=== PATIENT | female | born 1950 | race Caucasian/White ===

== ENCOUNTER 2023-08-10 17:41 | Emergency (ER) | payer BC, OTHER ==
[2023-08-10 18:20] LABS: Absolute Eosinophils 0.1 K/uL (0-0.5); Absolute Lymphocytes (CBC) 0.9 K/uL (0.7-4.9); Absolute Monocytes 0.8 K/uL (0.1-1.3); Absolute Neutrophil 4.8 K/uL (1.8-8.0); Basophils % 0.6 % (0-1.3); Eosinophils % 1.6 % (0-4.4); Hematocrit 30.9 % (36.0-45.0); Hemoglobin 9.7 g/dL (12.0-15.0); Lymphocytes % 13.4 % (15.3-44.8); MCH 22.1 pg (27.0-35.0); MCHC 31.5 g/dL (32.0-36.0); MCV 70.2 fL (80-100); MPV 10.6 fL (7.6-11.3); Neutrophils % 72.4 % (41.7-73.7); Nucleated Red Blood Cells % 0.1 % (0-0); Platelets 265 thou/uL (152-406); RBC Red Blood Cell Count 4.41 M/uL (3.86-4.86); Red Cell Distribution Width 17.4 % (12.1-15.2)
[2023-08-10 18:30] LABS: Anion Gap 6.9 mEq/L (5.0-15.0)
[2023-08-10 18:31] LABS: Potassium 3.9 mEq/L (3.5-5.1)
--- NOTE | 2023-08-10 18:47 | RAD REPORT ---
EXAM DESCRIPTION: US - Extremity Venous Uni Ltd - 08/10/2023 6:20 pm CLINICAL HISTORY: Pain COMPARISON: None. TECHNIQUE: Real-time sonographic evaluation of the right lower extremity deep venous system was perf ormed. FINDINGS: Normal compressibility, flow augmentation, phasic flow and spontaneous flow is identified in the right lower extremity deep venous system. No intraluminal filling defects seen. IMPRESSION: No DVT in the right lower extremity.
--- NOTE | 2023-08-10 18:50 | EDPHYS ---
Physician Documentation [facility] Name: Marie Reynoso Age: 73 yrs Sex: Female : 1950 Arrival Date: 08/10/2023 Time: 17:41 Bed 11 Private MD: ED Physician Cory London HPI: 08/09 22:01 This 73 yrs old Female presents to ER via Ambulatory with complaints of Ankle Injury. kb 22:01 Pt is a 73 year old female who presents for lateral right ankle pain that started this kb morning. States the area has become red with some warmth to it. Denies injury or trauma, fever. No pain with range of joint. Pt was seen at Urgent Care today, had x-ray that was negative for fracture but was told she needed to be checked for a blood clot. Historical: - Allergies: 17:54 No Known Allergies; as6 - PMHx: 17:54 Hypertensive disorder; Hypothyroidism; as6 - PSHx: 17:54 shoulder; gastric bypass; Total abdominal hysterectomy; eyes; hip; foot; as6 - Immunization history:: Adult Immunizations up to date. - Infectious Disease History:: Denies. - Social history:: Smoking status: Patient denies any tobacco usage or history of. ROS: 21:58 Constitutional: As per HPI kb Exam: 21:58 Constitutional: This is a well developed, well nourished patient who is awake, alert, kb and in no acute distress. Head/Face: Normocephalic, atraumatic. ENT: Moist Mucous membranes Cardiovascular: Regular rate Respiratory: Respirations even and unlabored. No increased work of breathing. Talking in full sentences Abdomen/GI: Soft, non-tender. No distention MS/ Extremity: Pulses equal, no cyanosis. Neurovascular intact. Full, normal range of motion. Neuro: Awake and alert, GCS 15, oriented to person, place, time, and situation. Moves all extremities. Normal gait. 21:58 Skin: cellulitis, that is mild, on the right ankle, Vital Signs: 17:53 BP 150 / 78; Pulse 64; Resp 18; Temp 97.8; Pulse Ox 100% ; as6 MDM: 17:50 Patient medically screened. kb 21:59 Differential diagnosis: sprain, gout, cellulitis. Data reviewed: vital signs, nurses kb notes. Counseling: I had a detailed discussion with the patient and/or guardian regarding the historical points, exam findings, and any diagnostic results supporting the discharge/admit diagnosis, lab results, the need for outpatient follow up, a family practitioner, to return to the emergency department if symptoms worsen or persist or if there are any questions or concerns that arise at home. 08/09 17:56 Order name: CBC with Diff; Complete Time: 18:45 kb 08/09 17:56 Order name: Basic Metabolic Panel; Complete Time: 18:45 kb 08/09 17:56 Order name: US Extremity Venous Unilateral Ltd; Complete Time: 18:49 kb Administered Medications: No medications were administered Disposition Summary: 08/10/23 18:49 Discharge Ordered Notes: Location: Home kb Condition: Stable kb Diagnosis - Cellulitis of right lower limb kb Followup: kb - With: Emergency Department - When: As needed - Reason: Worsening of condition Followup: kb - With: Private Physician - When: 2 - 3 days - Reason: Recheck today's complaints, Continuance of care, Re-evaluation by your physician Discharge Instructions: - Discharge Summary Sheet kb - Cellulitis, Adult, [id number] kb Forms: - Medication Reconciliation Form kb - Antibiotic Education kb - Prescription Opioid Use kb - Patient Portal Instructions kb - Leadership Thank You Letter kb Prescriptions: - Cephalexin 500 mg Oral Capsule - take 1 capsule ORAL route every 8 hours for 10 days; 30 capsule; Refills: 0, kb Product Selection Permitted Signatures: Dispatcher [employer] Nancy Renee, SCREW MACHINE HAND-C Reece Hyman RN RN as6 Corrections: (The following items were deleted from the chart) 19:00 17:56 IV Saline Lock ordered. kb ss
--- NOTE | 2023-08-10 18:50 | ER ---
Nurse's Notes [facility] Name: Marie Reynoso Age: 73 yrs Sex: Female : 1950 Arrival Date: 08/10/2023 Time: 17:41 Bed 11 Private MD: Diagnosis: Cellulitis of right lower limb Presentation: 08/09 17:53 Chief complaint: Patient states: right ankle pain and swelling. Coronavirus screen: At as6 this time, the client does not indicate any symptoms associated with coronavirus-19. Ebola Screen: No symptoms or risks identified at this time. Initial Sepsis Screen: Does the patient meet any 2 criteria? No. Patient's initial sepsis screen is negative. Does the patient have a suspected source of infection? No. Patient's initial sepsis screen is negative. Risk Assessment: Do you want to hurt yourself or someone else? Patient reports no desire to harm self or others. Onset of symptoms was August 09, 2023. 17:53 Method Of Arrival: Ambulatory as6 17:53 Acuity: ANGELICA 3 as6 Historical: - Allergies: 17:54 No Known Allergies; as6 - PMHx: 17:54 Hypertensive disorder; Hypothyroidism; as6 - PSHx: 17:54 shoulder; gastric bypass; Total abdominal hysterectomy; eyes; hip; foot; as6 - Immunization history:: Adult Immunizations up to date. - Infectious Disease History:: Denies. - Social history:: Smoking status: Patient denies any tobacco usage or history of. Screenin:00 [facility] ED Fall Risk Assessment (Adult) History of falling in the last 3 months, ss including since admission No falls in past 3 months (0 pts). Abuse screen: Denies threats or abuse. Denies injuries from another. Nutritional screening: No deficits noted. Tuberculosis screening: Never had TB. Assessment: 19:00 General: Appears in no apparent distress. comfortable, Behavior is calm, cooperative. ss Neuro: Level of Consciousness is awake, alert, obeys commands, Oriented to person, place, time, situation. Respiratory: Airway is patent Respiratory effort is even, unlabored, Respiratory pattern is regular, symmetrical. Derm: Skin is intact, is healthy with good turgor, Skin is dry. Vital Signs: 17:53 BP 150 / 78; Pulse 64; Resp 18; Temp 97.8; Pulse Ox 100% ; as6 ED Course: 17:46 Patient arrived in ED. mg5 17:50 Nancy Abarca FNP-C is PHCP. kb 17:50 Cory London MD is Attending Physician. kb 17:54 Triage completed. as6 17:57 Reece Blackmon, RN is Primary Nurse. as6 17:57 Arm band placed on. as6 18:07 Basic Metabolic Panel Sent. as6 18:08 CBC with Diff Sent. as6 18:22 US Extremity Venous Unilateral Ltd In Process Unspecified. EDMS 19:00 Patient has correct armband on for positive identification. ss 19:00 No provider procedures requiring assistance completed. Patient did not have IV access ss during this emergency room visit. Administered Medications: No medications were administered Medication: 19:00 VIS not applicable for this client. ss Outcome: 18:49 Discharge ordered by . kb 19:00 Discharged to home ambulatory, with family, ss 19:00 Condition: good 19:00 Discharge instructions given to patient, family, Instructed on discharge instructions, follow up and referral plans. medication usage, Demonstrated understanding of instructions, follow-up care, medications, Prescriptions given X 1, 19:03 Patient left the ED. ss Signatures: Dispatcher [employer] EDMO Nancy Abarca FNP-C FNP-Ashlyn Leavitt, RN RN Reece Blackmon, RN RN Katlyn Ordonez mg5
[2023-08-10 19:19] VITALS: BP 150/78; TEMP 97.8; O2SAT 100
== END 2023-08-10 19:03 | disposition home or self-care (01) ==
LOC: ER 17:41
DX: L03.115 Cellulitis of right lower limb (principal)
CPT/HCPCS: 36415; 80048; 85025; 93971; 99283

== ENCOUNTER 2023-12-03 15:03 | Observation (INO) | payer OTHER ==
[2023-12-03 15:33] LABS: Absolute Lymphocytes (CBC) 0.9 K/uL (0.7-4.9); Absolute Monocytes 0.7 K/uL (0.1-1.3); Absolute Neutrophil 5.1 K/uL (1.8-8.0); Basophils % 0.3 % (0-1.3); Eosinophils % 0.5 % (0-4.4); Hematocrit 29.8 % (36.0-45.0); Hemoglobin 9.2 g/dL (12.0-15.0); Lymphocytes % 13.6 % (15.3-44.8); MCH 22.7 pg (27.0-35.0); MCHC 30.9 g/dL (32.0-36.0); MCV 73.3 fL (80-100); Monocytes % 10.7 % (3.3-12.3); Neutrophils % 74.9 % (41.7-73.7); Platelets 225 thou/uL (152-406); RBC Red Blood Cell Count 4.07 M/uL (3.86-4.86); Red Cell Distribution Width 17.8 % (12.1-15.2)
[2023-12-03 15:42] LABS: PT Prothrombin Time 11.3 SECONDS (9.4-12.5); Protime INR 1.01
[2023-12-03] MEDS ORDERED: ASPIRIN 81 MG CHEWABLE TABLET ONE (15:48)
[2023-12-03] MEDS ORDERED: ONDANSETRON 4 MG/2 ML VIAL ONE (15:48)
[2023-12-03] MEDS ORDERED: IBUPROFEN 200 MG TAB PO ONE (15:49)
[2023-12-03] MEDS ORDERED: NA CHLORIDE 0.9% 0 ML ONE (15:50)
[2023-12-03 15:59] LABS: AST/SGOT 11 U/L (15-37); Albumin 2.8 g/dL (3.4-5.0); Albumin/Globulin Ratio 0.8 (1.1-1.8); Alkaline Phosphatase 76 U/L (45-117); Anion Gap 8.5 mEq/L (5.0-15.0); BUN Blood Urea Nitrogen 33 mg/dL (7-18); Bicarbonate 27 mEq/L (21-32); Bilirubin Total 0.3 mg/dL (0.2-1.0); Globulin 3.6 g/dL (2.3-3.5); Glomerular Filtration Rate 59 ml/min (=/>90); Glucose Level 111 mg/dL (74-106); Magnesium 1.3 mg/dL (1.6-2.4); NT PRO-BNP 433 pg/mL (<125); Protein, Total 6.4 g/dL (6.4-8.2); Sodium Level 141 mEq/L (136-145); Troponin High Sensitivity 25.6 pg/mL (<58.9)
[2023-12-03 16:01] LABS: ALT/SGPT < 14 U/L (13-56)
[2023-12-03 16:03] LABS: Potassium 2.5 mEq/L (3.5-5.1)
--- NOTE | 2023-12-03 16:18 | RAD REPORT ---
EXAMINATION: ONE VIEW CHEST XR CLINICAL INDICATION: Female, 73 years old.,CHEST PAIN TECHNIQUE: Frontal chest projection is submitted. Examination is limited by patient positioning and t echnique. COMPARISON: No prior exam. FINDINGS: The lungs are well inflated and, apart from mild left basilar atelectasis. No pneumothorax or sizabl e effusion. The heart is normal in size. IMPRESSION: No acute intrathoracic abnormalities.
[2023-12-03] MEDS ORDERED: POTASSIUM CL SA 10 MEQ TAB PO ONE (16:26)
[2023-12-03] MEDS ORDERED: KCL 20 MEQ/100 mL IVPB 100 ML IV ONE (16:27)
[2023-12-03] MEDS ORDERED: NA CHLORIDE 0.9% 500 ML ONE (16:27)
--- NOTE | 2023-12-03 16:37 | ER ---
Nurse's Notes [facility] Name: Marie Reynoso Age: 73 yrs Sex: Female : 1950 Arrival Date: 12/03/2023 Time: 15:03 Bed 6 Private MD: Diagnosis: Acute systolic (congestive) heart failure;Hypokalemia Presentation: 12/02 15:13 Chief complaint: Intermittent right sided chest pain x 2 days. Seen at [facility], instructed to come to ED for abnormal EKG. Coronavirus screen: At this time, the client does not indicate any symptoms associated with coronavirus-19. Ebola Screen: No symptoms or risks identified at this time. Initial Sepsis Screen: Does the patient meet any 2 criteria? No. Patient's initial sepsis screen is negative. Does the patient have a suspected source of infection? No. Patient's initial sepsis screen is negative. Risk Assessment: Do you want to hurt yourself or someone else? Patient reports no desire to harm self or others. Onset of symptoms was December 02, 2023. 15:13 Method Of Arrival: Ambulatory hb 15:13 Acuity: ANGELICA 2 hb Triage Assessment: 15:26 General: Behavior is cooperative. qf Historical: - Allergies: 15:15 No Known Allergies; hb - PMHx: 15:15 Hypertensive disorder; Hypothyroidism; hb - PSHx: 15:15 eyes; foot; Gastric Bypass; hip; Shoulder; Total abdominal hysterectomy; hb - Immunization history:: Adult Immunizations up to date. - Infectious Disease History:: Denies. - Social history:: Smoking status: Patient denies any tobacco usage or history of. Screenin:27 [facility] ED Fall Risk Assessment (Adult) History of falling in the last 3 months, qf including since admission Yes- single mechanical fall (1 pt) Confusion or Disorientation No (0 pts) Intoxicated or Sedated No (0 pts) Impaired Gait No (0 pts) Mobility Assist Device Used No (0 pt) Altered Elimination No (0 pt) Score/Fall Risk Level 0 - 2 = Low Risk. Abuse screen: Denies threats or abuse. Denies injuries from another. Nutritional screening: No deficits noted. Tuberculosis screening: No symptoms or risk factors identified. Assessment: 15:24 General: Appears in no apparent distress. comfortable, well groomed, well nourished. qf Pain: Complains of pain in chest Pain radiates to posterior chest and back Pain currently is 8 out of 10 on a pain scale. Neuro: No deficits noted. Cardiovascular: No deficits noted. Chest pain. Respiratory: No deficits noted. 17:40 Reassessment: Report given to Lanie Tan RN. qf Vital Signs: 15:13 BP 140 / 53; Pulse 71; Resp 16; Temp 97.9; Pulse Ox 100% on R/A; Pain 8/10; hb 15:13 Pain Scale: Adult hb ED Course: 15:05 Patient arrived in ED. mr 15:07 Sal Mack[facility] 15:07 Carolyn Florez MD is Attending Physician. dr5 15:09 Naz Iglesias, MARLEEN is Primary Nurse. iw 15:15 Triage completed. hb 15:16 Arm band placed on. hb 15:20 Inserted saline lock: 20 gauge in right antecubital area, using aseptic technique. qf 15:23 CBC with Diff Sent. qf 15:23 Magnesium Sent. qf 15:23 NT PRO-BNP Sent. qf 15:23 PT-INR Sent. qf 15:23 Troponin HS Sent. qf 15:23 CMP Sent. qf 15:29 Patient has correct armband on for positive identification. Placed in gown. Bed in low qf position. Call light in reach. Side rails up X 1. Provided Education on: ER Procedures.. 16:06 XRAY Chest (1 view) In Process Unspecified. EDMS 16:35 Jean Paul Tripp is Hospitalizing Provider. dr5 18:07 No provider procedures requiring assistance completed. Patient admitted, IV remains in iw place. Administered Medications: 15:44 Not Given (Patient Refused): morphineor iv 2 mg IVP once over 4 mins qf 15:56 Drug: Aspirin PO Chewable Tablet 324 mg PO once; 81 mg tablets x 4 Route: PO; qf 16:48 Follow up: Response: No adverse reaction qf 15:57 Not Given (Patient Refused): ondansetron 4 mg IVP once; over 2 minutes qf 16:25 Drug: Potassium Chloride PO 40 mEq PO once Route: PO; rs5 16:25 Drug: NS 0.9% IV 500 ml IV at bolus once Route: IV; Rate: bolus; Site: right rs5 antecubital; 16:25 Drug: Potassium Chloride IV 20 mEq IV at per protocol once; administer over 1-2 hours rs5 Route: IV; Rate: per protocol; Site: right antecubital; Medication: 18:07 VIS not applicable for this client. iw Outcome: 16:36 Decision to Hospitalize by Provider. dr5 18:07 Admitted to Tele accompanied by tech, via wheelchair, room 406, iw 18:07 Condition: good 18:07 Discharge instructions given to patient, Instructed on the need for admit, Demonstrated understanding of instructions, 18:07 Patient left the ED. iw Signatures: Dispatcher [employer] EDMS LopezLuz, Reg Reg mr Naz Iglesias RN RN iw Ruchi Figueroa RN RN Jason Bhatia RN RN rs5 Sal Mack, CHURCH ADMINISTRATOR-C CHURCH ADMINISTRATOR-Cdr5 Yumiko Brown RN RN qf
--- NOTE | 2023-12-03 16:37 | EDPHYS ---
Physician Documentation [facility] Name: Marie Reynoso Age: 73 yrs Sex: Female : 1950 Arrival Date: 12/03/2023 Time: 15:03 Bed 6 Private MD: ED Physician Carolyn Florez HPI: 12/02 15:16 This 73 yrs old Female presents to ER via Ambulatory with complaints of dr5 Abnormal Lab Results. 15:16 Onset: The symptoms/episode began/occurred 2 day(s) ago. Associated signs and symptoms: dr5 Pertinent positives: chest pain, Back Pain. The patient has been recently seen at an urgent care, [facility] today. Pt is a 73 year old female presenting with intermittent right sided chest pain and back pain. Pt has hx of HTN and gastric bypass surgery (Mar 2023), and hypothyroidism. Pt sees guest service agent for HTN management. . Historical: - Allergies: 15:15 No Known Allergies; hb - PMHx: 15:15 Hypertensive disorder; Hypothyroidism; hb - PSHx: 15:15 eyes; foot; Gastric Bypass; hip; Shoulder; Total abdominal hysterectomy; hb - Immunization history:: Adult Immunizations up to date. - Infectious Disease History:: Denies. - Social history:: Smoking status: Patient denies any tobacco usage or history of. ROS: 15:19 Constitutional: as per hpi dr5 Exam: 15:19 Constitutional: This is a well developed, well nourished patient who is awake, alert, dr5 and in no acute distress. Head/Face: Normocephalic, atraumatic. ENT: Nares patent. No nasal discharge, no septal abnormalities noted. Tympanic membranes are normal and external auditory canals are clear. Oropharynx with no redness, swelling, or masses, exudates, or evidence of obstruction, uvula midline. Mucous membranes moist. Neck: Trachea midline, no thyromegaly or masses palpated, and no cervical lymphadenopathy. Supple, full range of motion without nuchal rigidity, or vertebral point tenderness. No Meningismus. Chest/axilla: Normal chest wall appearance and motion. Nontender with no deformity. No lesions are appreciated. Cardiovascular: Regular rate and rhythm with a normal S1 and S2. Normal PMI, no JVD. No pulse deficits. 15:19 ECG was reviewed by the Attending Physician. 17:17 Cardiovascular: Rate: normal, actual rate is 67 bpm, Rhythm: regular, Pulses: Pulses dr5 are 2+ in right radial artery and left radial artery. 17:17 Respiratory: the patient does not display signs of respiratory distress, 17:17 Abdomen/GI: Inspection: abdomen appears normal, Palpation: abdomen is soft and non-tender, in all quadrants, 17:17 Back: pain, that is mild, 17:17 Musculoskeletal/extremity: Extremities: ROM: no acute changes, intact in all extremities, Circulation is intact in all extremities. Pulses: are normal with no appreciated deficits, Edema, 1+ to the left ankle, left foot, right ankle and right foot is noted, 17:17 Skin: Appearance: Color: normal in color, pink, Temperature: normal temperature, warm, 17:17 Neuro: Orientation: is normal, to person, place, time \T\ situation. Mentation: is normal, 17:17 Psych: exam not indicated, Vital Signs: 15:13 BP 140 / 53; Pulse 71; Resp 16; Temp 97.9; Pulse Ox 100% on R/A; Pain 8/10; hb 15:13 Pain Scale: Adult hb MDM: 15:07 Patient medically screened. dr5 17:17 Differential diagnosis: URI, bronchitis, CHF, STEMI, NSTEMI. Data reviewed: vital dr5 signs, nurses notes. Consideration of Admission/Observation Patient was admitted/placed on observation. Management of patient was discussed with the following: Hospitalist: Dr. Tripp accepted patient for admission. I considered the following discharge prescriptions or medication management in the emergency department Medications were administered in the Emergency Department. See MAR. Care significantly affected by the following chronic conditions: Hypertension, Hypothyroidism. Care significantly affected by the following Social Determinants of Health: Poor access to healthcare and/or lack of insurance. Counseling: I had a detailed discussion with the patient and/or guardian regarding the historical points, exam findings, and any diagnostic results supporting the discharge/admit diagnosis, the presence of at least one elevated blood pressure reading (>120/80) during this emergency department visit, lab results, radiology results, the need for further work-up and treatment in the hospital. ED course: Pt found to have pro-BNP of over 400 consistent with new onset CHF with hypokalemia, hypo magnesium and decision was made to admit for further management (repeat trop, ECHO, etc.). 12/02 15:13 Order name: CBC with Diff; Complete Time: 15:45 dr5 12/02 15:13 Order name: Magnesium; Complete Time: 16:10 dr5 12/02 15:13 Order name: NT PRO-BNP; Complete Time: 16:10 dr5 12/02 15:13 Order name: PT-INR; Complete Time: 15:45 dr5 12/02 15:13 Order name: Troponin HS; Complete Time: 16:10 dr5 12/02 15:13 Order name: CMP; Complete Time: 16:10 dr5 12/02 17:09 Order name: Potassium EDMS 12/02 17:09 Order name: T4 Free EDMS 12/02 17:09 Order name: Thyroid Stimulating Hormone EDMS 12/02 17:09 Order name: Urinalysis w/ reflexes EDMS 12/02 17:09 Order name: Basic Metabolic Panel EDMS 12/02 17:09 Order name: Basic Metabolic Panel EDMS 12/02 17:09 Order name: Basic Metabolic Panel EDMS 12/02 17:09 Order name: Basic Metabolic Panel EDMS 12/02 17:09 Order name: Basic Metabolic Panel EDMS 12/02 17:09 Order name: Basic Metabolic Panel EDMS 12/02 17:09 Order name: CBC with Automated Diff EDMS 12/02 17:09 Order name: CBC with Automated Diff EDMS 12/02 17:09 Order name: CBC with Automated Diff EDMS 12/02 17:09 Order name: CBC with Automated Diff EDMS 12/02 17:09 Order name: CBC with Automated Diff EDMS 12/02 17:09 Order name: CBC with Automated Diff EDMS 12/02 17:09 Order name: Hemoglobin A1c EDMS 12/02 17:09 Order name: Hemoglobin A1c EDMS 12/02 17:09 Order name: Lipid Profile EDMS 12/02 17:09 Order name: Lipid Profile EDMS 12/02 17:09 Order name: Magnesium EDMS 12/02 17:09 Order name: Magnesium EDMS 12/02 17:09 Order name: Magnesium EDMS 12/02 17:09 Order name: Magnesium EDMS 12/02 17:09 Order name: Magnesium EDMS 12/02 17:09 Order name: Magnesium EDMS 12/02 17:09 Order name: Phosphorus EDMS 12/02 17:09 Order name: Phosphorus EDMS 12/02 17:09 Order name: Phosphorus EDMS 12/02 17:09 Order name: Phosphorus EDMS 12/02 17:09 Order name: Phosphorus EDMS 12/02 17:09 Order name: Phosphorus EDMS 12/02 17:09 Order name: Troponin High Sensitivity EDMS 12/02 17:09 Order name: Troponin High Sensitivity EDMS 12/02 17:09 Order name: Troponin High Sensitivity EDMS 12/02 15:13 Order name: XRAY Chest (1 view); Complete Time: 16:19 dr5 12/02 15:13 Order name: EKG; Complete Time: 15:13 dr5 12/02 15:13 Order name: Cardiac monitoring; Complete Time: 16:01 dr5 12/02 15:13 Order name: EKG - Nurse/Tech; Complete Time: 16:01 dr5 12/02 15:13 Order name: IV Saline Lock; Complete Time: 15:23 dr5 12/02 15:13 Order name: Labs collected and sent; Complete Time: 15:23 dr5 12/02 15:13 Order name: O2 Per Protocol; Complete Time: 16:01 dr5 12/02 15:13 Order name: O2 Sat Monitoring; Complete Time: 16:01 dr5 EC:19 Rate is 67 beats/min. Rhythm is regular. QRS [place] is Normal. [place] interval is normal at dr5 140 msec. QRS interval is normal at 90 msec. QT interval is normal at 410 msec. Administered Medications: 15:44 Not Given (Patient Refused): morphineor iv 2 mg IVP once over 4 mins qf 15:56 Drug: Aspirin PO Chewable Tablet 324 mg PO once; 81 mg tablets x 4 Route: PO; qf 16:48 Follow up: Response: No adverse reaction qf 15:57 Not Given (Patient Refused): ondansetron 4 mg IVP once; over 2 minutes qf 16:25 Drug: Potassium Chloride PO 40 mEq PO once Route: PO; rs5 16:25 Drug: NS 0.9% IV 500 ml IV at bolus once Route: IV; Rate: bolus; Site: right rs5 antecubital; 16:25 Drug: Potassium Chloride IV 20 mEq IV at per protocol once; administer over 1-2 hours rs5 Route: IV; Rate: per protocol; Site: right antecubital; Disposition Summary: 12/03/23 16:36 Hospitalization Ordered Notes: Hospitalization Status: Inpatient Admission dr5 Provider: Jean Paul Tripp Location: Telemetry/MedSurg (Inpatient) dr5 Condition: Stable dr5 Problem: new dr5 Symptoms: are unchanged dr5 Bed/Room Type: Standard dr5 Room Assignment: 409(12/03/23 17:17) eb Diagnosis - Acute systolic (congestive) heart failure dr5 - Hypokalemia dr5 Forms: - Medication Reconciliation Form dr5 - SBAR form dr5 - Leadership Thank You Letter dr5 Signatures: Dispatcher [employer] EDMS Ruchi Figueroa RN RN hb Botello, Elizabeth eb Sotelo, Ricky, RN RN rs5 Sal Mack, PLANTING MACHINE CREWMAN-C PLANTING MACHINE CREWMAN-Cdr5 Yumiko Brown RN RN qf Corrections: (The following items were deleted from the chart) 15:14 15:13 CBC+H.LAB.BRZ ordered. EDMS EDMS 15:14 15:13 MAGNESIUM+C.LAB.BRZ ordered. EDMS EDMS 15:14 15:13 PROBNP+C.LAB.BRZ ordered. EDMS EDMS 15:14 15:13 PROTIME (+INR)+COAG.LAB.BRZ ordered. EDMS EDMS 15:14 15:13 Troponin High Sensitivity+C.LAB.BRZ ordered. EDMS EDMS 15:14 15:13 COMPREHENSIVE METABOLIC PANEL+C.LAB.BRZ ordered. EDMS EDMS 15:19 15:16 Pt is a 73 year old female presenting with intermittent right sided chest pain / dr5 back pain. Pt has hx of HTN and gastric bypass surgery (Mar 2023). Pt sees guest service agent for HTN management. . dr5 17:17 16:36 dr5 eb 17:19 15:19 Constitutional: This is a well developed, well nourished patient who is awake, dr5 alert, and in no acute distress. Head/Face: Normocephalic, atraumatic. ENT: Nares patent. No nasal discharge, no septal abnormalities noted. Tympanic membranes are normal and external auditory canals are clear. Oropharynx with no redness, swelling, or masses, exudates, or evidence of obstruction, uvula midline. Mucous membranes moist. Neck: Trachea midline, no thyromegaly or masses palpated, and no cervical lymphadenopathy. Supple, full range of motion without nuchal rigidity, or vertebral point tenderness. No Meningismus. Chest/axilla: Normal chest wall appearance and motion. Nontender with no deformity. No lesions are appreciated. Cardiovascular: Regular rate and rhythm with a normal S1 and S2. Normal PMI, no JVD. No pulse deficits. dr5
[2023-12-03] MEDS ORDERED: ACETAMINOPHEN 325 MG TABLET PO PRN (17:00)
--- NOTE | 2023-12-03 17:15 | P.HP ---
Certification for Inpatient Patient admitted to: Observation With expected LOS: <2 Midnights Patient will require the following post-hospital care: None Practitioner: I am a practitioner with admitting privileges, knowledge of patient current condition, hospital course, and medical plan of care. Services: Services provided to patient in accordance with Admission requirements found in Title 42 Section 412.3 of the Code of Federal Regulations Patient History Date of Service: 12/03/23 Reason for admission: Chest pain r/o, electrolyte abnormalitis History of Present Illness: Marie Reynoso is a 73 year old female with Pmhx HTN, iron deficiency anemia, and hypothyroidism who presents to the ED with chest pain radiating to the back and dizziness for four days. She states she had to attend an event today but the pain had worsened to bad to attend. [facility] where her EKG was abnormal and was advised to come to the ED. On evaluation, she reports chest pain with deep breaths and with leaning forward, no acute distress, systolic murmur noted, trace edema to BLE. Laboratory evaluation significant for potassium 2.5, Mag 1.3, BNP 433, H&H 9.2/29.8, EKG negative for ST changes. Initial vitals BP 140 / 53; Pulse 71; Resp 16; Temp 97.9; Pulse Ox 100% on R/A Chest x-ray report "The lungs are well inflated and, apart from mild left basilar atelectasis. No pneumothorax or sizable effusion. The heart is normal in size. IMPRESSION: No acute intrathoracic abnormalities." Marie will be admitted to hospitalist service for further evaluation and treatment of chest pain r/o ACS, cardiology consulted. - Past Medical/Surgical History -: Hypertension -: Hypothyroidism -: Iron deficiency anemia -: Surgery to bilateral eyes -: Foot surgery -: Gastric bypass -: Hip surgery -: Shoulder surgery -: Total abdominal hysterectomy - Social History Smoking Status: Never smoker Alcohol use: No CD- Drugs: No Review of Systems Cardiovascular: Chest Pain (Radiates to the back) Neurological: Other (Dizziness) Physical Examination - Physical Exam General: Alert, In no apparent distress, Oriented x3 HEENT: Atraumatic, Normocephalic, PERRLA Neck: Supple, 2+ carotid pulse no bruit Respiratory: Clear to auscultation bilaterally, Normal air movement Cardiovascular: Normal pulses, Regular rate/rhythm, Normal S1 S2, Systolic murmur Capillary refill: <2 Seconds Gastrointestinal: Normal bowel sounds, Soft and benign, No tenderness Musculoskeletal: No clubbing Integumentary: No rashes Neurological: Normal speech, Normal tone - Studies Laboratory Data (last 24 hrs) 12/03/23 12/03/23 12/03/23 15:20 15:20 15:20 WBC 6.80 Hgb 9.2 L Hct 29.8 L Plt Count 225 PT 11.3 INR 1.01 Sodium 141 Potassium 2.5 L* BUN 33 H Creatinine 1.01 Glucose 111 H Magnesium 1.3 L Total Bilirubin 0.3 AST 11 L ALT < 14 Alkaline Phosphatase 76 Assessment and Plan - Plan Assessment and Plan Chest pain r/o Acute pericarditis Systolic murmur Dizziness - EKG: No obvious ST segment changes, trend - troponin 25.6, Serial pending - Ordered transthoracic echocardiogram - chest x-ray reports "No acute intrathoracic abnormalities." - Consult Cardiology - recommendations appreciated - S/P aspirin 324 mg PO x 1 in ED - daily aspirin and statin - Ibuprophen Q8H - Symptom control with PRN acetaminophen - continuous telemetry -TSH/FreeT4, A1C, lipid panel pending -Orthostatic vitals Iron deficiency Anemia -Labs pending -Monitor H/H -History of needing a blood transfusion -H/H 9.2/29.8 Hypokalemia Hypomagnesemia -K 2.5, mag 1.3 -Potassium given in the ED -Recheck -monitor and replete PRN HTN Hypothyroidism -Continue home medications DVT ppx lovenox Full code LOS 24 hours OBS Discharge Plan: Home Plan to discharge in: 24 Hours - Advance Directives Does patient have a Living Will: No Does patient have a Durable POA for Healthcare: No
[2023-12-03] MEDS ORDERED: IBUPROFEN 600 MG TAB PO SCH (18:00)
[2023-12-03 18:36] VITALS: BMI 22.4
[2023-12-03] MEDS ORDERED: HYDROCODONE/APAP 5/325 MG TAB PO PRN (19:25)
[2023-12-03] MEDS: ATORVASTATIN 40 MG TAB PO SCH (19:46)
[2023-12-03] MEDS: MAGNESIUM OXIDE 400 MG TAB PO ONE (19:46)
[2023-12-03] MEDS: MORPHINE 2 MG/ML SYR IV PRN (19:46)
[2023-12-03] MEDS: IBUPROFEN 600 MG TAB PO SCH (22:05)
[2023-12-04] MEDS: POTASSIUM CL SA 10 MEQ TAB PO ONE (02:12)
[2023-12-04 06:22] LABS: Absolute Eosinophils 0.2 K/uL (0-0.5); Absolute Lymphocytes (CBC) 1.4 K/uL (0.7-4.9); Absolute Monocytes 0.7 K/uL (0.1-1.3); Absolute Neutrophil 2.9 K/uL (1.8-8.0); Basophils % 0.7 % (0-1.3); Eosinophils % 3.2 % (0-4.4); Hematocrit 28.4 % (36.0-45.0); Hemoglobin 8.9 g/dL (12.0-15.0); Lymphocytes % 26.9 % (15.3-44.8); MCH 22.8 pg (27.0-35.0); MCHC 31.2 g/dL (32.0-36.0); MCV 73.1 fL (80-100); MPV 11.4 fL (7.6-11.3); Monocytes % 13.4 % (3.3-12.3); Neutrophils % 55.8 % (41.7-73.7); Platelets 211 thou/uL (152-406); RBC Red Blood Cell Count 3.88 M/uL (3.86-4.86)
[2023-12-04 07:05] LABS: Anion Gap 5.1 mEq/L (5.0-15.0); Ferritin 21.4 ng/mL (8-252); Magnesium 1.4 mg/dL (1.6-2.4); Potassium 4.1 mEq/L (3.5-5.1); Thyroid Stimulating Hormone 1.22 uIU/mL (0.358-3.740)
[2023-12-04 08:07] LABS: Sqamous Epithelial <5 /HPF (None Seen); Urine Bacteria <20 /HPF (<20); Urine Bilirubin NEGATIVE (Negative); Urine Blood Negative (Negative); Urine Clarity Clear (Clear); Urine Color Light-Yellow (Yellow); Urine Crystals Unidentified Few /HPF (None Seen); Urine Culture Reflex Order NOT NEEDED; Urine Glucose 2+ (Negative); Urine Ketones NEGATIVE (Negative); Urine Microscopic Reflex YN ORDER UMIC; Urine Mucus Slight /HPF (None Seen); Urine Nitrite NEGATIVE (Negative); Urine Protein TRACE (Negative); Urine RBC <5 /HPF (None Seen); Urine Urobilinogen Normal (Normal); Urine WBC Clump Rare /HPF (None Seen); Urine pH 5.5 (5.0-7.0)
[2023-12-04] MEDS: ENOXAPARIN 40 MG/0.4 ML SQ SCH (08:13)
[2023-12-04] MEDS: ASPIRIN EC 81 MG TAB PO SCH (08:13)
[2023-12-04] MEDS: Magnesium Sulfate 2gm IVPB 2 G/50 ML BAG IV ONE (08:14)
[2023-12-04 09:06] VITALS: TEMP 98; O2SAT 97
--- NOTE | 2023-12-04 10:30 | P.CNS ---
Date of Consult: 12/04/23 Chief Complaint: Chest pain r/o, electrolyte abnormalitis History of Present Illness: Patient with PMH of HTN presented with right sided chest pain radiating to her back, denies any other cardiac symptoms, she had a fall a week ago, and pain is reproducible on exam. Allergies hydrocodone Allergy (Verified 12/03/23 18:39) Itching Home medications list reviewed: Yes Home Medications: Amitriptyline [Elavil*] 1 tab PO BEDTIME 12/03/23 Amlodipine Besylate 1 tab PO BID 12/03/23 Gabapentin [Neurontin] 100 mg PO TID 12/03/23 Levothyroxine Sodium 100 mcg PO DAILY 12/03/23 Metoprolol Succinate [Toprol Xl*] 12.5 tab PO BID 12/03/23 Rosuvastatin Calcium 40 mg PO DAILY 12/03/23 Valsartan/Hydrochlorothiazide [Valsartan-Hctz 320-25 mg Tab] 1 tab PO DAILY 12/03/23 - Past Medical/Surgical History Diabetic: No -: Hypertension -: Hypothyroidism -: Iron deficiency anemia -: Surgery to bilateral eyes -: Foot surgery -: Gastric bypass -: Hip surgery -: Shoulder surgery -: Total abdominal hysterectomy - Family History Mother Medical History: Cancer Father Medical History: Heart disease - Social History Alcohol use: No CD- Drugs: No Place of Residence: Home Review of Systems 10-point ROS is otherwise unremarkable Physical Examination Temp Pulse Resp BP Pulse Ox 98.0 F 61 15 139/65 97 12/04/23 08:00 12/04/23 08:00 12/04/23 08:00 12/04/23 08:00 12/04/23 08:00 General: Alert, In no apparent distress HEENT: Atraumatic, PERRLA, Mucous membr. moist/pink, EOMI, Sclerae nonicteric Neck: Supple, 2+ carotid pulse no bruit, No LAD, Without JVD or thyroid abnormality Respiratory: Clear to auscultation bilaterally, Normal air movement Cardiovascular: Regular rate/rhythm, Normal S1 S2 Gastrointestinal: Normal bowel sounds, No tenderness Musculoskeletal: No tenderness Integumentary: No rashes Neurological: Normal gait, Normal speech, Normal tone, Normal affect Lymphatics: No axilla or inguinal lymphadenopathy Laboratory Data (last 24 hrs) 10/08/2012/03/23 12/03/23 15:20 15:20 15:20 WBC 6.80 Hgb 9.2 L Hct 29.8 L Plt Count 225 PT 11.3 INR 1.01 Sodium 141 Potassium 2.5 L* BUN 33 H Creatinine 1.01 Glucose 111 H Magnesium 1.3 L Total Bilirubin 0.3 AST 11 L ALT < 14 Alkaline Phosphatase 76 - Problems (1) Chest pain Current Visit: Yes Status: Acute Plan: atypical for cardiac, most likely MSK, right sided with negative cardiac enzymes. No further inpatient cardiac work up needed. (2) HTN (hypertension) Current Visit: Yes Status: Acute Plan: continue patient home medications.
--- NOTE | 2023-12-04 11:18 | P.DS ---
Admission Date: 12/03/23 Discharge Date: 12/04/23 Disposition: ROUTINE DISCHARGE Discharge Condition: GOOD Reason for Admission: Chest pain r/o, electrolyte abnormalitis Brief History of Present Illness: Diagnosis Chest pain r/o Acute pericarditis ruled out Systolic murmur Dizziness Iron deficiency Anemia Hypokalemia Hypomagnesemia HTN HPI 12/03/23 Marie Reynoso is a 73 year old female with Pmhx HTN, iron deficiency anemia, and hypothyroidism who presents to the ED with chest pain radiating to the back and dizziness for four days. She states she had to attend an event today but the pain had worsened to bad to attend. [facility] where her EKG was abnormal and was advised to come to the ED. On evaluation, she reports chest pain with deep breaths and with leaning forward, no acute distress, systolic murmur noted, trace edema to BLE. Laboratory evaluation significant for potassium 2.5, Mag 1.3, BNP 433, H&H 9.2/29.8, EKG negative for ST changes. Initial vitals BP 140 / 53; Pulse 71; Resp 16; Temp 97.9; Pulse Ox 100% on R/A Chest x-ray report "The lungs are well inflated and, apart from mild left basilar atelectasis. No pneumothorax or sizable effusion. The heart is normal in size. IMPRESSION: No acute intrathoracic abnormalities." Marie will be admitted to hospitalist service for further evaluation and treatment of chest pain r/o ACS, cardiology consulted. Hospital Course: Marie is a pleasant 73 year old female with a past medical history significant for HTN, iron deficiency anemia, and hypothyroidism who was admitted to the [facility] on 12/03/23 for Chest pain r/o. Marie to the ED with chief complaint of chest pain that radiated to her back. On examination, pain increased to her chest to take a deep breath and when sitting forward. Troponins and EKG both negative, pain was relieved with Motrin in the ED and continued on the floor. Dr. Kraft was consulted and recommended follow-up with her nuclear engineer outpatient, his evaluation discovered musculoskeletal discomfort. Echo resulted with trace tricuspid, aortic, and mitral regurgitation and normal EF. She is tolerating p.o. diet, ambulating independently, urinating without difficulty, pain has relieved. She will discharge with plans to follow-up with her PCP concerning musculoskeletal discomfort and with her nuclear engineer for further evaluation. She has been educated to stop using ibuprofen at this time until cleared by her PCP. On 12/04/23, Marie was seen on morning rounds and deemed medically stable for discharge. Marie was discharged with instructions to schedule follow-up appointments with PCP and cardiology. Marie was provided prescriptions for Iron. Physical Exam General: Alert and Oriented x3, NAD HEENT: Atraumatic, Normocephalic, PERRLA Neck: Supple, 2+ carotid pulse no bruit Respiratory: Clear to auscultation bilaterally, Normal air movement Cardiovascular: Normal pulses, RRR, Normal S1 S2, Systolic murmur Capillary refill: <2 Seconds Gastrointestinal: Normal bowel sounds, Soft and benign on palpation, NT/ND Musculoskeletal: No clubbing Integumentary: No rashes Neurological: Normal speech, Normal tone Vital Signs/Physical Exam: Temp Pulse Resp BP Pulse Ox 98.0 F 61 15 139/65 97 12/04/23 08:00 12/04/23 08:00 12/04/23 08:00 12/04/23 08:00 12/04/23 08:00 Laboratory Data at Discharge: WBC 5.20 thou/uL (4.3-10.9) 12/04/23 05:49 Hgb 8.9 g/dL (12.0-15.0) L 12/04/23 05:49 Hct 28.4 % (36.0-45.0) L 12/04/23 05:49 Plt Count 211 thou/uL (152-406) 12/04/23 05:49 PT 11.3 SECONDS (9.4-12.5) 12/03/23 15:20 INR 1.01 12/03/23 15:20 Sodium 142 mEq/L (136-145) 12/04/23 05:49 Potassium 4.1 mEq/L (3.5-5.1) 12/04/23 05:49 BUN 26 mg/dL (7-18) H 12/04/23 05:49 Creatinine 0.83 mg/dL (0.55-1.02) 12/04/23 05:49 Glucose 87 mg/dL (74-106) 12/04/23 05:49 Phosphorus 3.0 mg/dL (2.5-4.9) 12/04/23 05:49 Magnesium 1.4 mg/dL (1.6-2.4) L 12/04/23 05:49 Total Bilirubin 0.3 mg/dL (0.2-1.0) 12/03/23 15:20 AST 11 U/L (15-37) L 12/03/23 15:20 ALT < 14 U/L (13-56) 12/03/23 15:20 Alkaline Phosphatase 76 U/L (45-117) 12/03/23 15:20 Triglycerides 41 mg/dL (<150) 12/04/23 05:49 Cholesterol 125 mg/dL (<200) 12/04/23 05:49 HDL Cholesterol 50 mg/dL (40-60) 12/04/23 05:49 Cholesterol/HDL Ratio 2.50 12/04/23 05:49 Home Medications: Amitriptyline [Elavil*] 1 tab PO BEDTIME 12/03/23 Amlodipine Besylate 1 tab PO BID 12/03/23 Gabapentin [Neurontin*] 100 mg PO TID 12/03/23 Levothyroxine Sodium 100 mcg PO DAILY 12/03/23 Metoprolol Succinate [Toprol Xl*] 12.5 tab PO BID 12/03/23 Rosuvastatin Calcium 40 mg PO DAILY 12/03/23 Valsartan/Hydrochlorothiazide [Valsartan-Hctz 320-25 mg Tab] 1 tab PO DAILY 12/03/23 Ferrous Sulfate 325 mg PO DAILY 30 Days #30 tab 12/04/23 New Medications: Ferrous Sulfate 325 mg PO DAILY 30 Days #30 tab Physician Discharge Instructions: Marie presented with chest and back pain, likely musculoskeletal, Treated with ibuprophen but will not recommend continued use of ibuprophen with regards to your history of gastric ulcer and anemia. Please follow up with Dr. Kraft and your PCP for further treatment. ECHO results pending at this time 1. Please call and schedule a follow-up appointment with your PCP in 3-5 days - Please follow-up with your PCP for medication refills/adjustments -Follow-up on iron levels 2. Please call and schedule a follow-up appointment with Dr. Kraft in 3-5 days 3. Continue Heart healthy diet 4. activity restrictions 5. Return to the ED if symptoms worsen New medications Sulfate 325 mg p.o. daily Diet: AHA Activity: Fall precautions Followup: Cullen Kraft MD [ACTIVE - CAN ADMIT] - Adrien Florez DO [Primary Care Provider] -
--- NOTE | 2023-12-04 11:53 | EKG ---
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
[2023-12-04 12:08] VITALS: BP 143/61
--- NOTE | 2023-12-04 12:47 | ECHO ---
HEIGHT: 5 ft 5 in WEIGHT: 135 lb 0 oz DATE OF STUDY: 12/04/[address]: Sabrina Amezcua NP 2-DIMENSIONAL: YES M.MODE: YES DOPPLER: YES COLOR FLOW: YES TDS: PORTABLE: YES DEFINITY: BUBBLE STUDY: DIAGNOSIS: CHEST PAIN CARDIAC HISTORY: CATHERIZATION: NO SURGERY: NO PROSTHETIC VALVE: NO PACEMAKER: NO MEASUREMENTS (cm) DIASTOLIC (NORMALS) SYSTOLIC (NORMALS) IVSd 0.9 (0.6-1.2) LA Diam 3.9 (1.9-4.0) LVEF 60-65% LVIDd 4.4 (3.5-5.7) LVIDs 2.7 (2.0-3.5) %FS 39% LVPWd 1.1 (0.6-1.2) Ao Diam 2.7 (2.0-3.7) 2 DIMENSIONAL ASSESSMENT: RIGHT ATRIUM: NORMAL LEFT ATRIUM: NORMAL RIGHT VENTRICLE: NORMAL LEFT VENTRICLE: MILD LEFT VENTRICULAR HYPERTROPHY TRICUSPID VALVE: TRACE TRICUSPID REGURGITATION MITRAL VALVE: TRACE MITRAL REGURGITATION PULMONIC VALVE: NORMAL AORTIC VALVE: TRACE AORTIC REGURGITATION PERICARDIAL EFFUSION: NONE AORTIC ROOT: NORMAL LEFT VENTRICULAR WALL MOTION: NORMAL DOPPLER/COLOR FLOW: NORMAL COMMENTS: 1. NORMAL LEFT VENTRICULAR SYSTOLIC FUNCTION, EJECTION FRACTION 60-65%, NORMAL WALL MOTION 2. NORMAL FILLING PRESURE (RIGHT ATRIAL PRESSURE 0-5 mmHg) TECHNOLOGIST: JYOTI ROCKWELL
[2023-12-04] MEDS ORDERED: PNEUMOCOCCAL VACCINE 0.5 ML IMVAC ONE (18:00)
== END 2023-12-04 12:08 | disposition home or self-care (01) ==
LOC: ER 15:03 → ERHOLD 17:00 → 4TH 17:29
PROVIDERS: ADMIT Internal Medicine; ATTEND Internal Medicine
DX: R07.9 Chest pain, unspecified (principal); R01.1 Cardiac murmur, unspecified; I10 Essential (primary) hypertension; D50.9 Iron deficiency anemia, unspecified; E03.9 Hypothyroidism, unspecified; R42 Dizziness and giddiness; E87.6 Hypokalemia; E83.42 Hypomagnesemia; Z88.5 Allergy status to narcotic agent
CPT/HCPCS: 93005; 93306; 85025 ×2; 81001; 80048; 36415; 83735 ×2; 84100; 84132; 85610; 80061; 84443; 83036; 84484 ×3; 84439; 82728; 82607; 83540; 83010; 80053; 83880; 84466; 71045; 96374; 99285; J3480; J3475; J1650; J2270; J7040; G0378; J2405; J7030